=== PATIENT | male | born 1935 | race Caucasian/White ===

== ENCOUNTER 2016-08-02 05:35 | Day surgery (SDC) | payer MEDICARE, OTHER ==
[~2016-08-02] VITALS: Ht 176.5 cm; Wt 81.1 kg
[~2016-08-02 05:35] MED LIST: ALBU8.5H2 INHALATION; ASPI-973 PO; ATRV10T PO; BECL8.7A6 INHALATION; BUTA1CAP16 PO; CERA453C2 TP; CLOB50SO TP; IBUP200C PO; IRBE150T28 PO; METF850T2 PO
[2016-08-02] MEDS ORDERED: fentaNYL-PF 50 mCg/mL 2 mL Inj ONE (05:36)
[2016-08-02] MEDS ORDERED: Propofol 10,000 mCg/mL 20 mL Inj ONE (05:36)
[2016-08-02] MEDS ORDERED: CeFAZolin Inj 2 GM in IV Premix 1 EACH IV ONE (06:00)
[2016-08-02 06:11] VITALS: BP 135/77; PULSE 62; RESP 14; O2SAT 98
[2016-08-02] MEDS: Lactated Ringer's 1,000 ML IV SCH ×2 (06:24→07:24)
--- NOTE | 2016-08-02 06:39 | PCM.HPANE ---
Patient Data Surgeon Admitting Provider: Attending Provider:Vijay Boateng MD Primary Care Physician:Rogelio Kan MD Other Provider:Lonnie Resendiz Anesthesia Reason for Visit Left Thumb Mucous Cyst Ht/WT & BMI Height (Feet): 5 Height (Inches): 9.50 Weight (Kilograms): 81.100 Body Mass Index 25.00 Allergies Coded Allergies: No Known Allergies (Verified , 10/14/07) Past Anesthesia History Anesthesia History: Denies:: Anesthesia Reactions Diabetes History Hx Diabetes?: Yes Type of Diabetes: Type II Glycemic Control: Oral Medication Current Bedside Blood Glucose: 117 MRSA MRSA: No Medications Hypertension Medication: Yes Home Meds Incl Beta Geraldine: No Reported Medications Beclomethasone Dipropionate (Qvar)8.7 Gm Aer.w.adap1 Puff INHALATION BID #8.7 GM 07/31/16 Metformin 850 Mg [id number] Mg PO BID Ref 0 07/31/16 Irbesartan 150 Mg [id number] Mg PO DAILY 07/31/16 Ibuprofen 200 Mg [id number] Mg PO QID PRN For Pain Ref 0 07/31/16 Butalbital/Aspirin/Caff 50-325-40 mg (Fiorinal 50-325-40 mg)1 Each Capsule1 Capsule PO Q4H PRN migraines Ref 0 NTE 6 caps/24hrs 07/31/16 Clobetasol Propionate 50 Ml Bfhteyht72 Ml TP BID to mix with cerave cream 07/31/16 Ceramides 1,3,6-11 (Cerave)453 Gm Cream..g.453 Gm TP BID 07/31/16 Atorvastatin (Lipitor)10 Mg Tab10 Mg PO DAILY Ref 0 07/31/16 Aspirin 81 Mg Jjntxt59 Mg PO DAILY Ref 0 07/31/16 Albuterol HFA (Proair HFA)8.5 Gm Hfa.aer.ad2 Puffs INHALATION Q4H PRN For Shortness of Breath #1 INHALER 07/31/16 Discontinued Reported Medications Therapeutic Multivit/Minerals-Expunged Drug, 1 Ea Tab 10/14/07 Aspirin-Expunged Drug, Do Not Renew! 81 Mg Tab.chew 10/14/07 Simvastatin-Expunged Drug, Choose New Med! 10 Mg Tablet 10/14/07 Lisinopril-Expunged Drug, Do Not Renew! 20 Mg Tablet 10/14/07 History History of ENT Problems?: Yes HEENT History: Positive for:: Cataracts Hearing Problem Denies:: Dysphagia Sinus Problem Denture Type: None Teeth Condition: Within Normal Limits Hx of Heart Problems?: Yes Cardiovascular History: Positive for:: Heart Murmur Hypertension Peripheral Vascular (raynauds toes, uses topical verapamil) Valvular Heart Disease (mod aortic stenosis- echo 10/2015- ef 62%) Denies:: Cardiac Surgery Chest Pain Congestive Heart Failure Edema Irregular Heartbeat Pacemaker Thrombophlebitis Hx of Respiratory Problem?: Yes Respiratory History: Positive for:: Asthma (uses albuterol inhaler about once Q6 months) Use of Inhalers / NEBS Denies:: COPD Chest Surgery Dyspnea Emphysema Hemoptysis Pneumonia Tuberculosis Use of C-PAP Machine Hx Neurologic Problems?: No Neurological History: Denies:: Alzheimer's Disease CVA Dementia Dizziness Headaches (remote hx of) Parkinson's Disease Seizures Hx of GI Problems?: Yes Hx of Problems?: No Genitourinary History: Denies:: HX of Hemodialysis Kidney Stones Urinary Tract Infection HX of Peritoneal Dialysis: No Male Hx: Denies:: Scrotal Mass Testicular Surgery Skin History: Denies:: History Skin Disorders? Pressure Ulcers Hx Musculoskeletal Problems?: Yes Musculoskeletal History: Positive for:: Back Injury (hx of cervical fusion C5- 6) Musculoskeletal Trauma (left thumb mucous cyst current admission problem) Denies:: Joint Replacement Hx of Psycho/Social Problems?: No Hx Surgeries?: Yes (tonsillectomy, bilat. cataracts and lens implants, cervical fusion C5-C6) Hx Any Other Health Problems?: Yes Other History: Positive for:: Hospitalization (1973 for neck surgery) Denies:: Cancer Endocrine Disease Thyroid Disease History Blood Transfusions: Denies:: Blood Transfusions Hx Diabetes: YesBedside Blood Glucose: 117 Hx Alcohol Use: NoHx Substance Use: NoHave You Smoked inLast 12 mo: No Stop/Bang S-Snoring: Do You Snore Loudly: No T-Tired: feel tired, fatigued: No O-Obsered: Observed not breath: No P-Blood Pressure: treated: Yes B- Body Mass Index > 35 kg/m2: No A- Age over 50: Yes N- Neck Large Circumference: No G- Gender Male: Yes EMEKA Total Score: 3 EMEKA Risk Assessment: Low Risk, <3 Yes Risk Assessment Category Category 1A: Patient has history of documented sleep apnea, and HAS NOT received any narcotic, sedative or anesthesia administration during this stay. Category 1B: Patient has history of documented sleep apnea, and HAS received any narcotic , sedative or anesthesia administration during this stay Category 2: Patient has SUSPECTED Obstructive Sleep Apnea, and HAS received any narcotic , sedative or anesthesia administration during this stay. Category 3: Patient has SUSPECTED Obstructive Sleep Apnea and HAS NOT received narcotic, sedative or anesthesia administration during this stay. Category 4: Outpatient in Procedural Areas with known sleep apnea or who screen positive for High Risk via the STOP/BANG questionnaire. Exam Exam Vital Signs Vital Signs Date Time Temp Pulse Resp B/P Pulse Ox O2 Delivery O2 Flow Rate FiO2 08/02/16 06:11 36.2 62 14 135/77 98 Room Air General Appearance: Alert, Oriented X3, Cooperative, No Acute Distress HEENT/AIRWAY: MP 2 Lungs: Clear to Auscultation, Normal Air Movement Heart: Exam Unremarkable, Regular Rate/Rhythm, No Murmurs/Rubs/Gallops Meds/Labs/Diagnostics Admission Meds Current Medications Lactated Ringer's (Lr) 1,000 ml @ 10 mls/hr Q24H IV Last administered on t 06:24; Start 08/02/16 at 05:00; Stop 08/06/16 at 08:59 Bedside Blood Glucose: 117 Plan Impression Patient chart reviewed, patient interviewed and anesthestic plan with risks, benefits, and alternatives discussed, and informed consent obtained. NPO per Anesth. Guidelines: Yes Anesthetic Plan: MAC Bene/Risks/Altern/Consents: Yes HP Complete Prior to Induction: Yes Sb Frazier MD Aug 02, 2016 06:39
[2016-08-02] MEDS ORDERED: Lactated Ringer's 500 ML IV PRN (07:33)
[2016-08-02] MEDS ORDERED: Lactated Ringer's 1,000 ML IV SCH (07:33)
[2016-08-02] MEDS ORDERED: HYDROmorphone 1 mg/mL Inj IVPUSH PRN (07:35)
[2016-08-02] MEDS ORDERED: MetoCLOpramide 5 mg/mL 2 mL Inj IVPUSH PRN (07:35)
[2016-08-02] MEDS ORDERED: Ondansetron 2 mg/mL 2 mL Inj IVPUSH PRN (07:35)
[2016-08-02] MEDS ORDERED: Phenylephrine 10,000 mCg/mL Inj IVPUSH PRN (07:35)
[2016-08-02] MEDS ORDERED: fentaNYL-PF 50 mCg/mL 2 mL Inj IVPUSH PRN (07:35)
[2016-08-02] MEDS ORDERED: EPHEDrine Sulfate 50 mg/mL Inj IVPUSH PRN (07:35)
[2016-08-02] MEDS ORDERED: Dexamethasone 4 mg/mL Inj IVPUSH PRN (07:35)
[2016-08-02] MEDS ORDERED: Bupivacaine-MPF 0.25% 30 mL Inj INFILTRATE ONE (07:46)
[2016-08-02 08:14] VITALS: BP 124/78; PULSE 70; RESP 18; O2SAT 95
[2016-08-02] MEDS ORDERED: HYDROcodone-APAP 5-325 mg Tablet PO PRN (08:20)
[2016-08-02 08:38] VITALS: BP 120/78; PULSE 75; RESP 16; O2SAT 97
--- NOTE | 2016-08-02 09:00 | PCM.ANEP1 ---
Post Anesthesia Phase 1 PACU Phase 1 Assessment Vital Signs Vital Signs Date Time Temp Pulse Resp B/P Pulse Ox O2 Delivery O2 Flow Rate FiO2 08/02/16 08:38 75 16 120/78 97 Room Air 08/02/16 08:14 36.3 70 18 124/78 95 Room Air 08/02/16 06:11 36.2 62 14 135/77 98 Room Air Anesthetic Administered: MAC Level of Alertness: Awake, talking AHUMADA's with Equal Strength: Yes Pain: No Nausea or Vomiting: No Cardiovascular Function and Hy: Yes Oxygen Delivery: Room Air Lungs: Clear to Auscultation, Normal Air Movement Sb Frazier MD Aug 02, 2016 09:00
--- NOTE | 2016-08-06 14:17 | PATH ---
SURGICAL PATHOLOGY Attending Physician:Vijay Boateng CASE STATUS: Signed Out PATIENT NAME: HERNAN GARCIA PID: [id number] : 1935 DATE COLLECTED:08/02/2016 15:30 SPECIMEN: Skin, Cyst CLINICAL HISTORY: LEFT THUMB MUCOUS CYST, SAME 1. LEFT THUMB MUCOUS CYST FINAL DIAGNOSIS: 1.SPECIMEN DESIGNATED LEFT THUMB MUCOUS CYST: BENIGN MUCOUS CYST (CONSISTENT WITH GANGLION CYST). ICD10 CODE M67.4 GROSS DESCRIPTION: The specimen is received in one formalin filled container labeled with the patient's name, sublabeled "left thumb mucous cyst" and consists of a 0.6 x 0.5 x 0.4 CM portion of tissue which is inked blue, bisected and entirely submitted in one cassette. 08/02/2016 DAC MICRO DESCRIPTION: See diagnosis. ICD-9 CODES: CPT CODES: 1: 97519 Electronically Signed Out Martinez Chappell MD [facility] Pathology [facility] [address], [place] [address] Technical component performed at [facility], [facility] [address], [place], [address]
--- NOTE | 2016-08-07 09:22 | OP ---
[address] [address] OPERATIVE REPORT PATIENT: HERNAN GARCIA : 1935 MR#: [id number] ADMIT: 08/02/2016 JOB ID: [id number] DATE OF SURGERY: 08/02/2016 PREOPERATIVE DIAGNOSIS(ES): Left thumb mucous cyst. POSTOPERATIVE DIAGNOSIS(ES): Left thumb mucous cyst. PROCEDURE: 1. Excision of left thumb mucous cyst. 2. Left thumb interphalangeal joint debridement. SURGEON: Vijay Boateng M.D. EXHAUSTER: None. ANESTHESIA: MAC with local. ESTIMATED BLOOD LOSS: Minimal. COMPLICATIONS: None apparent. SPECIMEN: Left thumb mucous cyst to Pathology. INDICATIONS FOR PROCEDURE: This is an 81-year-old male patient with a recurrent draining mass of the left thumb consistent with a mucous cyst. It is tender to touch and becomes inflamed quite often. At this point, excision of the cyst is indicated. PROCEDURE AND FINDINGS: The patient was identified in the preoperative area. Surgical site was marked. The patient was then taken back to the operating room and placed supine on the operating table. Appropriate time-outs were taken. MAC was induced. The patient was then prepped and draped in the usual sterile manner. Local anesthesia was then infiltrated in a digital block manner to the left thumb. A dorsal ring block was also carried out. The left thumb was then exsanguinated and a small finger tourniquet placed at the base of the finger. It was noted that patient had a mucous cyst on the radial aspect of distal phalanx dorsally intermediate between the interphalangeal crease and the eponychial fold. The skin over the central portion of the cyst is quite attenuated. An ellipse was then designed around the area of attenuation. The ellipse was obliquely oriented. The ellipse was then extended into a midline incision over the IP joint. The incision was made with a #15 blade at the marked line. I first turned my attention along the proximal portion of the incision. Incision was extended down into the subcutaneous tissue. I then elevated the skin flap from a proximal to distal fashion. As I approached the cyst, the skin flap was gently elevated off the cyst with a #15 blade and with a pair of iris scissors. This was done until the superficial surface of the cyst was completely dissected free. I then dissected the cyst free from the underlying deep tissue from a distal to proximal manner until I approached the joint capsule. The soft tissue crowley out at this point, and the cyst was passed off to the pathologist as a specimen. At this point, a longitudinal incision was then made on the radial border of the extensor complex down into the joint. A small window of dorsal and dorsal radial capsule was removed with a #15 blade exposing the joint. There was some bone spurring at the head of the proximal phalanx. There was also a small amount of bone spur at the base of the distal phalanx. These were smoothed with a small rongeur. Tourniquet was released and hemostasis was obtained with electrocautery. The incision was then reapproximated with several 5-0 nylon horizontal mattress sutures. The patient tolerated the procedure well. Needle count, sponge count, and instrument counts were correct at the end of the procedure. The patient was transported to recovery in a stable condition.
== END 2016-08-02 23:59 | disposition home or self-care (01) ==
LOC: SAS 05:35
PROVIDERS: ATTEND Plastic Surgery
DX: M67.442 Ganglion, left hand (principal); E11.9 Type 2 diabetes mellitus without complications; J45.909 Unspecified asthma, uncomplicated; M19.90 Unspecified osteoarthritis, unspecified site; R00.2 Palpitations; E78.5 Hyperlipidemia, unspecified; I10 Essential (primary) hypertension; G62.9 Polyneuropathy, unspecified; Z79.84 Long term (current) use of oral hypoglycemic drugs; Z79.82 Long term (current) use of aspirin; Z79.51 Long term (current) use of inhaled steroids
CPT/HCPCS: 26160; J0690; J2250; J3010; J7120

== ENCOUNTER 2017-01-05 06:44 | Emergency (ER) | payer MEDICARE, OTHER ==
[~2017-01-05] VITALS: Ht 175.3 cm; Wt 79.1 kg
[2017-01-05 06:44] VITALS: BP 135/56; PULSE 84; RESP 16; O2SAT 94
[2017-01-05] MEDS ORDERED: AMLO5TAB2 PO (07:04)
--- NOTE | 2017-01-05 07:26 | ED.REPORT ---
HPI-Extremity Problem Lower Date of Service Jan 05, 2017 ED Provider: Ady Strong MD The pt is a 81 y/o male with hx of DM II, HTN, who presents to the ED complaining of L knee pain onset one month ago but progressively worse since yesterday morning. He denies a mechanism of injury. At rest the pain is felt as a mild, dull ache. His pain is exacerbated to a sharpness with some associated weakness with turning and bearing weight. Associated symptoms include warmth, swelling, and trouble walking secondary to pain. He denies any hx of recent infection, gout, pseudogout, or bursitis. He denies fever, numbness, tingling, or any other symptoms. The pt visited [facility] 2 weeks ago for similar symptoms. An x-ray revealed "some fluid and arthritis" and he was given a knee brace which he has not been using. Nursing Notes Stated Complaint: LEFT KNEE PAIN Chief Complaint: Extremity Trauma Nursing Notes Reviewed: Yes ([facility], [employer] reconciled) Allergies: Coded Allergies: No Known Allergies (Verified , 01/05/17) Scheduled Amlodipine (Amlodipine) 5 Mg Tablet 5 MG PO DAILY Aspirin (Aspirin) 81 Mg Tablet 81 MG PO DAILY Atorvastatin (Lipitor) 10 Mg Tab 10 MG PO DAILY Beclomethasone Dipropionate (Qvar) 8.7 Gm Aer.w.adap 1 PUFF INHALATION BID Ceramides 1,3,6-11 (Cerave) 453 Gm Cream..g. 453 GM TP BID Clobetasol Propionate (Clobetasol Propionate) 50 Ml Solution 50 ML TP BID to mix with cerave cream Metformin (Metformin) 850 Mg Tablet 850 MG PO BID Prednisone (PredniSONE) 20 Mg Tablet 60 MG PO DAILY Scheduled PRN Albuterol HFA (Proair HFA) 8.5 Gm Hfa.aer.ad 2 PUFFS INHALATION Q4H PRN PRN For Shortness of Breath Butalbital/Aspirin/Caff 50-325-40 mg (Fiorinal 50-325-40 mg) 1 Each Capsule 1 CAPSULE PO Q4H PRN PRN migraines NTE 6 caps/24hrs Hydrocodone-Acetaminophen 5-325 mg (Hydrocodone-Acetaminophen 5-325 mg) 1 Each Tablet 0.5-1 TABLET PO Q4H PRN PRN For Pain Ibuprofen (Ibuprofen) 200 Mg Capsule 200 MG PO QID PRN PRN For Pain General Time Seen by MD: 07:13 Chief Complaint Knee injury left, Other Hx Obtained From: Patient Arrived By: Walk-in Onset Occurred: Yesterday Symptom Duration: Since onset Location: : Knee left Quality: Dull, Sharp Severity: Current: Moderate Severity: Maximum: Severe Associated with: Reports: Swelling Pertinent Negative: Pt denies other symptoms Exacerbated by: Range of motion, Bending, Flexion, Movement Relieved by: Immobilization Immunizations: Unknown Recent Healthcare: No recent hospitalization, Recent doctor visit Similar Sx Previous: Yes Past Medical History Past Medical History valvular heart disease (mod aortic stenosis) HTN Asthma DM II Arthritis back injury Past Surgical History cervical fusion c5-6 tonsillectomy bilateral cataracts and lens implants Smoking History Unknown if Ever Smoker Social History Alcohol Use: Denies alcohol use Drug Use: Denies drug use Other Social History: Good social support, Ambulatory Status Independent Review of Systems Review of Systems Note: -tingling +warmth at L knee Constitutional: Denies: Fever Musculoskeletal: Reports: Extremity pain (L knee), Extremity swelling (L knee) Skin: Reports Swelling Neurologic: Reports: Problem walking (secondary to pain ), Denies: Numbness Complete sys rev & neg: except as marked. Physical Exam Initial Vital Signs Vital Signs (First) Date Time Temp Pulse Resp B/P Pulse Ox O2 Delivery O2 Flow Rate FiO2 01/05/17 06:44 36.6 84 16 135/56 94 Room Air Initial VS: Reviewed, Vital signs normal General/Constitutional: Well-developed, Well-nourished Head / Eyes: Atraumatic, Normocephalic, PERRL Respiratory: Breath sounds normal, Clear to auscultation, No respiratory distress Skin: Warm, Dry Neurologic: Alert, Oriented, Nonfocal Psychiatric: Mood/affect normal, Behavior normal Lower Extremity / Pelvis / MS: Atraumatic, Neurologic intact, Vascular intact decreased flexion, full extension. Large L knee effusion w/ warmth No laxity Ankle / Foot: Atraumatic, Neurologic intact, Vascular intact Cardiovascular: Heart rate NL, Regular rhythm 2/6 murmur Upper Extremity / MS: Atraumatic, Neurologic intact, Vascular intact Interpretation & Diagnostics Lab Results Interpretation Test 01/05/17 08:15 Body Fluid Source Synovial fluid Body Fluid Color Red (Clear) Body Fluid Appearance Cloudy Body Fluid WBC 2675/mm3 Body Fluid RBC 63583/mm3 Body Fluid Polynuclear WBCs 90% Body Fluid Lymphocytes 5% Body Fluid Monocytes 5% Body Fluid Eosinophils 0% Body Fluid Basophils 0% Lab Results Interpretation: Cell count 2700 with 90% PMN, inflammatory Synovial culture pending Synovial Gram stain negative Crystals negative Procedures Arthrocentesis Left Knee Arthorcentesis Time: 07:46 Aspiration Performed by: ED physician Consent / Setup / Site Prep: Informed consent provided, Consent from patient, Time-out performed, Hand hygiene observed, Stand sterile technique, Standard surgical scrub, Sterile drapes applied Indication: Evacuate effusion, Culture and sensitivity Skin Preparation Agent: Hibiclens - Chlorhexidine Local Anesthesia: Bupivacaine 0.5% Joint Aspirated: Knee left Aspiration Needle: 18g Amount Aspirated: 50 ml Fluid Appearance: Serosanguinous Post-Procedure / Complications: Dressing placed, No complications, Condition improved, Tolerated procedure well, Patient stable Re-Eval/Medical Decision Med Decision/Clinical Course This is a pleasant 81-year-old male presents with left knee pain and swelling. He has had a little bit of soreness, but doesn't call us very specific event over the past several weeks, seen in urgent care, x-rays reveal small amount of fluid and probable arthritis, but over the past 24 hours developed marked swelling, and increasing pain, and warmth. He has had no fever, no risk factors for septic joint, no recent infections, no hardware in the joint. On exam he's got large effusion of the left knee, there is warmth, but no external cellulitis, he still can move his knee through a moderate range of motion, although it is mildly painful-but is not classic for being septic. I don 't appreciate ligamentous instability, the leg is neurovascularly intact, there are no open wounds. Hip and ankle exams are normal I reviewed his x-rays from urgent care recently, not finding indication for new radiographs given the absence of trauma. Arthrocentesis was performed with us yellow/bloody aspirate. Synovial analysis was negative Gram stain, low probability for bacterial infection, and negative for crystals. An intra- articular injection of bupivacaine was performed at the time of the procedure. Given the inflammatory findings a short course of systemic oral steroids is being provided. The patient is being discharged, Nino wrap applied, the patient' s advised to take ibuprofen 400 mg with food 3 times a day for the next several days, and some when necessary hydrocodone was also provided. Routine and return precautions reviewed. Follow-up with orthopedics recommended. he is discharged in improved condition Source of Hx: Old records Re-Evaluation/Progress : Time of Eval: 10:16 Patient Status: Condition improved Re-Evaluation/Progress Note: Pt rechecked. Informed pt of diagnosis and plan for discharge. The pt understands and agrees with plan for discharge. F/U instructions and RTER warnings given. All questions addressed at this time. Differential Diagnosis: Positive: Knee effusion, Negative: Abrasion, Abscess, Achilles tendon rupture, Ankle dislocation, Cellulitis, Compartment syndrome, Greater trochant fracture, Guillain-Jennings syndrome, Puncture wound, Splinter, Sprain, Subungual hematoma, Superficial thrombophleb, Venous thromboembolism Counseled Regarding: Diagnosis, Lab results, Need for follow-up, When/why to return to ED Discharge & Departure Impression: Primary Impression: Knee effusion, left Disposition: Home Discharge Condition All VS Reviewed: Yes Condition: Stable Additional Instructions: 1. You have an effusion of the left knee that was drained today. 2. Initial test suggests an inflammatory condition-there are no findings of an infection (technically, a "culture" is still pending and will take several days for final results). Additionally test for pseudogout and gout were negative. 3. Use the NINO wrap for support. 4. Take the anti-inflammatory ibuprofen 400mg three times a day with food for the next several days. 5. Take the anti-inflammatory prednisone 60mg once a day for the next 4 days. 6. You can take tylenol 1000mg up to four times a day for pain. (Or if needed more severe discomfort you can take hydrocodone/APAP 1/2 - 1 tab up to every 4- 6 hours instead. However this medication contains a narcotic and causes some drowsiness and constipation. Use sparingly. No driving for at least 4-6 hours after taking) 7. Follow-up with Dr. Lerma. 8. Return if new or worsening symptoms. Referrals: Rogelio Kan MD (PCP) Art Lerma DO Scribe Attestation Portions of this note were transcribed by Eliana Damon and Kwame Fisher. I , Dr. Ady Strong personally performed the history, physical exam and medical decision-making; I reviewed and confirmed the accuracy of the information in the transcribed note. Signed by: Eliana Damon and Beatriz Fuentes, 01/05/17. copies to: Rogelio Kan MD; Art Lerma Matthew F MD Jan 05, 2017 07:26 Eliana Damon Jan 05, 2017 07:32 KWAME FISHER Jan 05, 2017 09:42
[2017-01-05 09:13] LABS: BFWBC 2675 /mm3; MONOCYTES,BODY FLUID 5 %; OTHER CELLS,BODY FLUID 0
[2017-01-05] MEDS ORDERED: PRE20 PO (10:12)
[2017-01-05] MEDS ORDERED: HYDR-4003 PO (10:12)
[2017-01-05] MEDS ORDERED: predniSONE 20 mg Tablet PO ONE (10:15)
[2017-01-05 10:25] VITALS: BP 145/81; PULSE 71; RESP 16; O2SAT 94
[2017-01-05 11:03] VITALS: BP 145/81; PULSE 71; RESP 16; O2SAT 94
== END 2017-01-05 11:03 | disposition home or self-care (01) ==
LOC: SED 06:44
DX: M25.462 Effusion, left knee (principal); I10 Essential (primary) hypertension; E11.9 Type 2 diabetes mellitus without complications; Z79.82 Long term (current) use of aspirin; Z79.84 Long term (current) use of oral hypoglycemic drugs